=== PATIENT | female | born 1945 | race Caucasian/White ===

== ENCOUNTER 2017-01-31 08:54 | Emergency (ER) | payer MEDICARE, MEDICAID ==
[2017-01-31 09:19] VITALS: TEMP 97.8
--- NOTE | 2017-01-31 09:59 | ED PDOC ---
Arrival/HPI - General Historian: Patient - History of Present Illness Time/Duration: Other (2 years) Context: Home - General Chief Complaint: ENT Problem Time Seen by Provider: 01/31/17 09:56 - History of Present Illness Narrative History of Present Illness (Text): 01/31/17 09:56 This 71 yo female presents to this ED c/o sore throat x 2 years, and voice changes x 2-[address] Hannon referred her to see ENT. She said she had an appointment to see ENT in 3 weeks. Patient is here to get it sooner. Patient also requested a Assurance Manager referral since Dr. Hannon also recommended. Patient denies fever, ROBBINS, cp, palpitation, SOB, CHAVES, orthopnea, cough, leg swelling, hemoptysis, dysphagia, or dizzinesss. (Julio Cesar Estrella) Past Medical History - Provider Review Nursing Documentation Reviewed: Yes - Infectious Disease Hx of Infectious Diseases: None - Cardiac Hx Cardiac Disorders: Yes - Psychiatric Hx Substance Use: No - Surgical History Hx Appendectomy: Yes Family/Social History - Physician Review Nursing Documentation Reviewed: Yes Family/Social History: No Known Family HX Smoking Status: Never Smoked Hx Alcohol Use: No Hx Substance Use: No Allergies/Home Meds Allergies/Adverse Reactions: Allergies No Known Allergies Allergy (Verified 01/31/17 09:19) Home Medications: Home Meds Medication Instructions Recorded Confirmed No Known Home Med 01/31/17 01/31/17 Review of Systems - Review of Systems Constitutional: Normal. absent: Fatigue, Weight Change, Fevers Eyes: Normal. absent: Vision Changes, Photophobia, Eye Pain ENT: Sore Throat Respiratory: Normal. absent: SOB, Cough, Sputum, Wheezing Cardiovascular: Normal. absent: Chest Pain, Palpitations Gastrointestinal: Normal. absent: Abdominal Pain, Nausea, Vomiting Genitourinary Female: Normal. absent: Dysuria, Frequency, Hematuria, Vaginal Bleeding, Vaginal Discharge Musculoskeletal: Normal Skin: Normal Neurological: Normal Endocrine: Normal Hemo/Lymphatic: Normal Psychiatric: Normal Physical Exam Temperature: Afebrile Blood Pressure: Normal Pulse: Regular Respiratory Rate: Normal Appearance: Positive for: Well-Appearing, Non-Toxic, Comfortable Pain Distress: None Mental Status: Positive for: Alert and Oriented X 3 - Systems Exam Head: Present: Atraumatic, Normocephalic Pupils: Present: PERRL Extroacular Muscles: Present: EOMI Conjunctiva: Present: Normal Ears: Present: Normal, NORMAL TM, Normal Canal. No: Erythema, TM Bulging, Fluid , TM Perf Mouth: Present: Moist Mucous Membranes, Normal Lips, Normal Tounge. No: Drooling Pharnyx: Present: Normal. No: ERYTHEMA, EXUDATE, TONSILS ENLARGED, Peritonsilar Swelling, Uvular Deviation, Muffled/Hoarse Voice, Strider, Soft Palate/Uvular Edema Nose (External): Present: Atraumatic Nose (Internal): Present: Normal Inspection. No: Rhinorrhea Neck: Present: Normal Range of Motion, Trachea Midline. No: Meningeal Signs, MIDLINE TENDERNESS, Paraspinal Tenderness, Lymphadenopathy Respiratory/Chest: Present: Clear to Auscultation, Good Air Exchange. No: Respiratory Distress, Accessory Muscle Use, Wheezes, Decreased Breath Sounds, Rales, Retracting, Rhonchi, Tachypneic Cardiovascular: Present: Regular Rate and Rhythm, Normal S1, S2. No: Murmurs Abdomen: Present: Normal Bowel Sounds. No: Tenderness, Distention, Peritoneal Signs Back: Present: Normal Inspection. No: CVA Tenderness Upper Extremity: Present: Normal Inspection. No: Cyanosis, Edema Lower Extremity: Present: Normal Inspection. No: Edema Neurological: Present: GCS=15, CN II-XII Intact, Speech Normal Skin: Present: Warm, Dry, Normal Color. No: Rashes Psychiatric: Present: Alert, Oriented x 3, Normal Insight, Normal Concentration Vital Signs Temp Pulse Resp BP Pulse Ox 01/31/17 10:20 88 16 132/75 98 01/31/17 09:12 97.8 F 87 18 131/71 97 Medical Decision Making Re-evaluation Time: 10:02 Reassessment Condition: Re-examined, Unchanged ED Course and Treatment: 01/31/17 10:00 Patient came requesting referral for ENT and Assurance Manager. Patient stated she has a sore throat x 2 years. Patient has taken ABX in the past for same without relief. Patient has an appointment to see ENT on February 25 2017, but she wants to get another name to try to get appointment sooner, in addition she is requesting Assurance Manager referral, since Dr. Hannon told her to see Assurance Manager for baseline evaluation, since patient has not seen one yet. (Julio Cesar Estrella) I was available for consultation during PA evaluation. The chart was reviewed by me, and I agree with disposition. The documented history was done by the physician rn clinical documentation specialist. The documented physical exam was done by the physician rn clinical documentation specialist. The documented procedures were done by the physician rn clinical documentation specialist. ( Perry Lobo) Disposition/Present on Arrival - Present on Arrival Any Indicators Present on Arrival: No History of DVT/PE: No History of Uncontrolled Diabetes: No Urinary Catheter: No History of Decub. Ulcer: No History Surgical Site Infection Following: None - Disposition Have Diagnosis and Disposition been Completed?: Yes Disposition Time: 10:03 Patient Plan: Discharge - Disposition Diagnosis: Chronic sore throat, Referral needed Disposition: HOME/ ROUTINE Condition: GOOD Discharge Instructions (ExitCare): Pharyngitis (ED) Additional Instructions: Call Ear Nose and throat doctor for follow up visit at earliest appointment. Also call director gift for medical evaluation as requested by you. Return to emergency if symptoms worsen. Llame al specialista de la garganta Dr. Rangel, para hacer dejah fracisco lo mas pronto possible.. tambien llame a la officina del Cardiologo Dr. Quinones para hacer dejah fracisco lo mas pronto possible. Regrese a la emergenci si simptomas empeoran Referrals: Jomar Rangel DO [Staff Provider] - Follow up with primary Jordan Quinones MD [Staff Provider] - Follow up with primary
[2017-01-31 10:48] VITALS: BP 132/75; PULSE 88; RESP 16; O2SAT 98
== END 2017-01-31 10:20 | disposition home or self-care (01) ==
LOC: ED 08:54
DX: J31.2 Chronic pharyngitis (principal)